=== PATIENT | male | born 1990 | race Two or more races ===

== ENCOUNTER 2021-01-11 19:46 | Emergency (ER) | payer MEDICAID ==
[~2021-01-11] VITALS: Ht 180.3 cm; Wt 100.0 kg
[2021-01-11] MEDS ORDERED: SODIUM CHLORIDE 0.9% 1,000 ML IV ONE (20:30)
[2021-01-11 21:24] LABS: BASOPHILS % 0.1 % (0.0-2.0); EOSINOPHILS % 0.5 % (0.0-5.0); HEMATOCRIT. 35.9 % (42.0-52.0); HEMOGLOBIN. 11.7 g/dL (14.0-18.0); LYMPHOCYTES % 9.5 % (20.0-50.0); MEAN CORPUSCULAR HEMOGLOBIN 26.6 pg (28.0-32.0); MEAN CORPUSCULAR VOLUME 81.4 fL (80.0-94.0); MEAN PLATELET VOLUME 8.6 fl (7.4-10.4); MONOCYTES % 6.9 % (2.0-8.0); PLATELET 168 x1000/uL (130-400); RED BLOOD CELL COUNT 4.41 mill/uL (4.7-6.1); RED CELL DISTRIBUTION WIDTH 14.1 % (11.6-14.6)
[2021-01-11 21:29] LABS: CHLORIDE 109 mEq/L (98-107); CLARITY URINE CLEAR (CLEAR); COLOR URINE YELLOW (YELLOW); KETONES URINE TRACE (NEGATIVE); LEUKOCYTE ESTERASE URINE NEGATIVE (NEGATIVE); NITRITE URINE NEGATIVE (NEGATIVE); OCCULT BLOOD URINE NEGATIVE (NEGATIVE); PH URINE 5.5 (4.5-8.0); PROTEIN URINE 1+ (NEGATIVE); SPECIFIC GRAVITY URINE 1.022 (1.005-1.030)
[2021-01-11 21:34] LABS: ETHANOL BLOOD < 10 mg/dL
[2021-01-11 21:57] LABS: *AMPHETAMINES SCREEN URINE PRESUMTIVE POSITIVE (NEGATIVE); *BARBITURATES SCREEN URINE NEGATIVE (NEGATIVE); *BENZODIAZEPINES SCREEN URINE NEGATIVE (NEGATIVE); *COCAINE SCREEN URINE NEGATIVE (NEGATIVE); CANNABINOID URINE SCREEN NEGATIVE (NEGATIVE); METHADONE URINE SCREEN NEGATIVE (NEGATIVE); OPIATES URINE SCREEN PRESUMTIVE POSITIVE (NEGATIVE)
[2021-01-11 21:58] LABS: PHENCYCLIDINE URINE SCREEN NEGATIVE (NEGATIVE)
[2021-01-12] MEDS ORDERED: TRAZODONE HCL 50MG TABLET PO PRN (05:30)
[2021-01-12] MEDS ORDERED: HALOPERIDOL 5MG TABLET PO PRN (05:30)
[2021-01-12] MEDS ORDERED: HYDROXYZINE 25MG TABLET PO PRN (05:30)
[2021-01-12] MEDS: CITALOPRAM HYDROBROMIDE 10MG TABLET PO SCH (09:43)
[2021-01-13] MEDS: CITALOPRAM HYDROBROMIDE 10MG TABLET PO SCH (10:42)
[2021-01-13 20:34] VITALS: BP 113/51
== END 2021-01-13 20:59 | disposition short-term general hospital (02) ==
LOC: ER 19:46
DX: T40.0X1A Poisoning by opium, accidental (unintentional), initial encounter (principal); R45.851 Suicidal ideations; I49.9 Cardiac arrhythmia, unspecified; Z20.822 Contact with and (suspected) exposure to COVID-19; Z98.890 Other specified postprocedural states; Y92.9 Unspecified place or not applicable
CPT/HCPCS: 36415; 80053; 80305; 80307; 80320; 80329; 81003; 85025; 93005; 96360; 99285; C9803; J7030; U0003; U0005; G0480

== ENCOUNTER 2021-11-23 10:51 | Emergency (ER) | payer MEDICAID ==
[~2021-11-23] VITALS: Ht 177.8 cm; Wt 90.0 kg
[2021-11-23 10:56] VITALS: BP 138/62
[2021-11-23 11:32] LABS: HEMATOCRIT. 38.8 % (42.0-52.0); HEMOGLOBIN. 12.7 g/dL (14.0-18.0); MEAN CORPUSCULAR HEMOGLOBIN 27.7 pg (28.0-32.0); MEAN CORPUSCULAR VOLUME 84.9 fL (80.0-94.0); MEAN PLATELET VOLUME 10.4 fl (7.4-10.4); PLATELET 174 x1000/uL (130-400); RED BLOOD CELL COUNT 4.58 mill/uL (4.7-6.1)
[2021-11-23 11:33] LABS: CHLORIDE 108 mEq/L (98-107)
[2021-11-23 11:40] LABS: ETHANOL BLOOD 232 mg/dL
[2021-11-23 11:57] LABS: NUCLEATED RED BLOOD CELLS 1 /100 WBC; PLATELET ESTIMATE NORMAL
== END 2021-11-23 12:00 | disposition left against medical advice (07) ==
LOC: ER 11:02
DX: F10.129 Alcohol abuse with intoxication, unspecified (principal); F15.10 Other stimulant abuse, uncomplicated; F32.A Depression, unspecified; F20.9 Schizophrenia, unspecified; F11.10 Opioid abuse, uncomplicated; Y90.7 Blood alcohol level of 200-239 mg/100 ml; Z86.19 Personal history of other infectious and parasitic diseases
CPT/HCPCS: 36415; 80053; 80307; 80320; 80329; 85025; 99283; G0480